=== PATIENT | male | born 1960 | race Hispanic/Latino ===

== ENCOUNTER 2021-02-12 12:10 | Emergency (ER) | payer OTHER, SELFPAY ==
[~2021-02-12 12:10] MED LIST: BENA20TA10 PO; SERT-439 PO
[2021-02-12 12:22] VITALS: BP 143/70
[2021-02-12 13:11] LABS: BASOPHILS % (AUTO) 0.6 % (0.0-5.0); EOSINOPHILS % (AUTO) 0.8 % (0.0-8.0); HEMATOCRIT 49.8 % (42-54); LYMPHOCYTES % (AUTO) 21.3 % (21.0-51.0); MEAN CORPUSCULAR HEMOGLOBIN 28.8 pg (27.0-33.0); MEAN CORPUSCULAR HGB CONC 33.7 g/dL (32.0-36.0); MEAN CORPUSCULAR VOLUME 85.3 fL (79-99); MONOCYTES % (AUTO) 9.6 % (3.0-13.0); NEUTROPHILS % (AUTO) 67.4 % (40.0-77.0); PLATELET COUNT (AUTO) 229 K/uL (130-400); RED BLOOD CELL COUNT(AUTO) 5.84 MIL/uL (4.50-6.20); WHITE BLOOD COUNT (AUTO) 6.5 K/uL (4.8-10.8)
[2021-02-12 13:40] LABS: ALANINE AMINOTRANSFERASE 45 U/L (12-78); ALBUMIN 3.7 g/dL (3.5-5.0); ASPARTATE AMINOTRANSFERASE 22 U/L (10-37); BILIRUBIN,TOTAL 0.8 mg/dL (0.2-1.0); CARBON DIOXIDE 30 mmol/L (21-32); CHLORIDE 105 mmol/L (101-111); CREATINE KINASE, TOTAL 121 U/L (21-232); CREATININE 0.8 mg/dL (0.5-1.5); GLOMERULAR FILTR. RATE CALC 105 mL/min (>60); GLUCOSE,RANDOM 113 mg/dL (70-105); MYOGLOBIN 39 ng/mL (10-92); POTASSIUM 4.1 mmol/L (3.5-5.1); SODIUM SERUM 141 mmol/L (136-145); THYROID STIMULATING HORMONE 0.82 uIU/mL (0.36-3.74); TOTAL PROTEIN, SERUM 7.3 g/dL (6.0-8.3); TROPONIN I < 0.04 ng/mL (0.00-0.06); UREA NITROGEN, BLOOD 14 mg/dL (7-18)
[2021-02-12 13:43] LABS: AMPHET/METH SCREEN,URINE NEGATIVE (NEGATIVE); BARBITURATE SCREEN, URINE NEGATIVE (NEGATIVE); BENZODIAZEPINES SCREEN,URINE NEGATIVE (NEGATIVE); CANNABINOID SCREEN,URINE NEGATIVE (NEGATIVE); COCAINE SCREEN,URINE NEGATIVE (NEGATIVE); OPIATE SCREEN,URINE NEGATIVE (NEGATIVE); PHENCYCLIDINE SCREEN,URINE NEGATIVE (NEGATIVE)
[2021-02-12 13:52] LABS: B-TYPE NATRIURETIC PEPTIDE 10 pg/mL (0-100)
[2021-02-12 14:47] VITALS: BP 147/81
[2021-02-12 14:56] VITALS: BP 130/74
[2021-02-12 14:57] VITALS: BP 138/78
[2021-02-12 16:13] VITALS: BP 142/76
[2021-02-12 17:42] VITALS: BP 132/76
== END 2021-02-12 17:29 | disposition home or self-care (01) ==
LOC: EDH 12:10
DX: R53.83 Other fatigue (principal); I10 Essential (primary) hypertension; E11.9 Type 2 diabetes mellitus without complications; Z79.899 Other long term (current) drug therapy
CPT/HCPCS: 36415; 70450; 71045; 80053; 80305; 82550; 83874; 83880; 84439; 84443; 84481; 84484; 85025; 93005